=== PATIENT | female | born 1930 | race Caucasian/White ===

== ENCOUNTER 2016-05-12 12:35 | Inpatient (IN) | payer MEDICARE ==
[~2016-05-12] VITALS: Ht 176.5 cm; Wt 64.2 kg
[2016-05-12] MEDS ORDERED: 0.9% Sodium Chloride 1,000 ML IV ONE (12:39)
--- NOTE | 2016-05-12 12:39 | ED.REPORT ---
HPI-GI Bleed Date of Service May 12, 2016 ED Provider: Dr. Nathaniel Mcadams MD An 86 year female with a history of hypertension, stroke, atrial fibrillation on coumadin, dementia and Alzheimer's presents to the ED via EMS from Urgent Care complaining of a rectal bleed and hematochezia that began this morning. EMS reports the patient had raymond blood red stool this morning and she has been weak for the past few days. Heart rate was 52 in the field. Patient is unable to provide a history due to dementia. Nursing Notes Stated Complaint: GI BLEED Chief Complaint: Female Abdominal Pain Nursing Notes Reviewed: Yes Allergies: Coded Allergies: Penicillins (Verified Adverse Reaction, Intermediate, 05/12/16) Scheduled Cephalexin (Cephalexin) 500 Mg Capsule 500 MG PO QID Donepezil (Donepezil) 10 Mg Tablet 10 MG PO HS Furosemide (Lasix) 40 Mg Tablet 40 MG PO DAILY Metoprolol Tartrate (Metoprolol Tartrate) 25 Mg Tablet 25 MG PO BID Omeprazole (Omeprazole) 20 Mg Capsule.dr 20 MG PO DAILY Sertraline HCl (Sertraline) 100 Mg Tablet 100 MG PO DAILY Simvastatin (Simvastatin) 20 Mg Tablet 20 MG PO HS Scheduled PRN Hydrocodone-Acetaminophen 5-325 mg (Hydrocodone-Acetaminophen 5-325 mg) 1 Each Tablet 1 TABLET PO Q4H PRN PRN For Pain General Time Seen by Provider: 12:39 Chief Complaint Chief Complaint: Other (Rectal Bleed ) Hx Obtained From: EMS Unable to Obtain Hx: Mental status Arrived By: Ambulance Onset Occurred: 9 - 12 hours ago Symptom Duration: Since onset Progression Since Onset: Unchanged Associated with: Reports: Weakness Pertinent Negative: Pt denies other symptoms Recent Healthcare: No recent hospitalization, Recent doctor visit Past Medical History Past Medical History Alzheimer's Hemorrhoids Bleeding gastric ulcers Reports: Cancer, Hyperlipidemia, Hypertension, Stroke, Transient ischemic attack Reports: Atrial fibrillation, Dementia Smoking History Unknown if Ever Smoker Social History Other Social History: Good social support, Local resident Ambulatory Status Independent Review of Systems Unable to Obtain ROS Mental status Complete sys rev & neg: except as marked. Physical Exam Initial Vital Signs Initial VS: Reviewed Head / Eyes: Atraumatic, Normocephalic, PERRL ENT: Mucous membranes moist, Conjunctiva normal, No scleral icterus Neck: Supple, Non-tender, Full range of motion Skin: Warm, Dry, No cyanosis General/Constitutional: Awake, Alert, Cooperative At her baseline Respiratory / Chest: Atraumatic, Breath sounds NL, Breath sounds = bilat, No respiratory distress Cardiovascular: Heart rate NL, Regular rhythm, Heart sounds NL, No gallop, No murmurs, No rubs Heart Sounds / Murmur: Positive: Systolic murmur present.. (II/) Abdomen: Atraumatic, Soft, Non-tender, No guarding, No rebound, BS normoactive , No distention Well healed vertical surgical scar Rectal for Blood: Positive: Blood - occult heme +, Blood, grossly present Interpretation & Diagnostics Lab Results Interpretation Result Diagram: 05/17/16 0520 05/17/16 0520 Test 05/12/16 13:50 05/12/16 14:06 Urine Color Straw (YELLOW) Urine Appearance Clear (CLEAR,HAZY) Urine pH 7.5 (5.0-8.0) Urine Specific [place] 1.015 (1.003-1.035) Urine Protein Negativemg/dL (NEG,TRACE) Urine Glucose (UA) Negativemg/dL (NEGATIVE) Urine Ketones Negativemg/dL (NEGATIVE) Urine Occult Blood Trace (NEGATIVE) Urine Nitrite Negative (NEGATIVE) Urine Bilirubin Negative (NEGATIVE) Urine Urobilinogen Normalmg/dL (NORMAL) Urine Leukocyte Esterase Moderate (NEGATIVE) Urine RBC 0-2/hpf (0-2) Urine WBC 11-50/hpf (0-5) Urine Epithelial Cells Few/hpf (NONE-MOD) Urine Crystals None seen (NONE SEEN) Urine Bacteria Many/hpf (NONE-FEW) Urine Hyaline Casts None/lpf (NONE) Urine Granular Casts None seen (NONE SEEN) Urine Waxy Casts None seen (NONE SEEN) Urine Red Blood Cell Casts None seen (NONE SEEN) Urine White Blood Cell Casts None seen (NONE SEEN) Urine Mucus None seen (None Seen) Urine Trichomonas None seen (NONE SEEN) Urine Yeast None (NONE SEEN) Urinalysis Comment None Urine Culture Reflexed Indicated Hold Elder Top Tube Received (Received) ECG Interpretation ECG Interpretation: Atrial fibrillation Rate 67 Time: 01:08 Interpreted by: ED physician Re-Eval/Medical Decision Med Decision/Clinical Course I assumed care of this patient from Dr. Mcadams at approximately 1500. Vitals sign were stable. Rectal exam positive for a large amount of bright red blood. The patient had many external hemorrhoids though none were obviously bleeding. Labs: No leukocytosis hematocrit: 35.7 INR: 3.21 Chemistry is normal UA: consistent with UTI The patient remained hemodynamically stable. I suspect that her bleed was lower GI in nature and potentially related to internal hemorrhoids. That being said she is on Coumadin with history of colon cancer as well as history of bleeding gastric ulcers. At this time I cannot definitively attribute her GI bleed to hemorrhoids. She was discussed with GI and they recommended starting her on pantoprazole bolus and infusion admitting for further observation and management. They have requested she be started on bowel prep for endoscopy. Patient remained hemodynamically stable and is admitted to the hospitalist service for further management and consultation with GI. Given INR of 3 but hemodynamically stability with no significant ongoing bleeding we opted to withhold Coumadin though not reverse at this moment. Source of Hx: Old records, Family Counseled Regarding: Diagnosis, Lab results Discharge & Departure Shift Change Sign-Out Patient Care Transferred: Yes Discussed Complaint(s): Yes Laboratory Evaluation: Ordered, not yet done Response to Therapy: Unchanged Dr. Nash Impression: Primary Impression: GI bleed GI bleed type/associated pathology: unspecified gastrointestinal hemorrhage type Qualified Code: K92.2 - Gastrointestinal hemorrhage, unspecified Additional Impressions: Anemia Anemia type: unspecified type Qualified Code: D64.9 - Anemia, unspecified Anticoagulated on Coumadin History of colon cancer in adulthood History of gastric ulcer Discharge Condition All VS Reviewed: Yes Condition: Stable Care Transferred to: Dr. Tk Nash Care Transferred at: 15:00 Crit Care Except Billable Proc Time Spent: 105-134 minutes Services Performed: Patient management by me, Time spent at bedside, Reviewing test results, Reviewing imaging, Discussing patient care, Documentation in record, Time with fam/surrogate Critical Care Notes: Dr. Tk Nash Scribe Attestation Portions of this note were transcribed by Ann Cross. I, Dr. Mcadams personally performed the history, physical exam and medical decision-making; I reviewed and confirmed the accuracy of the information in the transcribed note. Signed by: Radha Thorpe, 05/12/16 1400. Nathaniel Mcadams MD May 12, 2016 12:38 ANN CROSS May 12, 2016 12:41 JEFRY SEGAL May 12, 2016 15:20 Tk Nash MD May 12, 2016 22:07 Urine Occult Blood Trace (NEGATIVE) Urine Nitrite Negative (NEGATIVE) Urine Bilirubin Negative (NEGATIVE) Urine Urobilinogen Normalmg/dL (NORMAL) Urine Leukocyte Esterase Moderate (NEGATIVE) Urine RBC 0-2/hpf (0-2) Urine WBC 11-50/hpf (0-5) Urine Epithelial Cells Few/hpf (NONE-MOD) Urine Crystals None seen (NONE SEEN) Urine Bacteria Many/hpf (NONE-FEW) Urine Hyaline Casts None/lpf (NONE) Urine Granular Casts None seen (NONE SEEN) Urine Waxy Casts None seen (NONE SEEN) Urine Red Blood Cell Casts None seen (NONE SEEN) Urine White Blood Cell Casts None seen (NONE SEEN) Urine Mucus None seen (None Seen) Urine Trichomonas None seen (NONE SEEN) Urine Yeast None (NONE SEEN) Urinalysis Comment None Urine Culture Reflexed Indicated Hold Elder Top Tube Received (Received) ECG Interpretation ECG Interpretation: Atrial fibrillation Rate 67 Time: 01:08 Interpreted by: ED physician Re-Eval/Medical Decision Med Decision/Clinical Course I assumed care of this patient from Dr. Mcadams at approximately 1500. Vitals sign were stable. Rectal exam positive for a large amount of bright red blood. The patient had many external hemorrhoids though none were obviously bleeding. Labs: No leukocytosis hematocrit: 35.7 INR: 3.21 Chemistry is normal UA: consistent with UTI The patient remained hemodynamically stable. I suspect that her bleed was lower GI in nature and potentially related to internal hemorrhoids. That being said she is on Coumadin with history of colon cancer as well as history of bleeding gastric ulcers. At this time I cannot definitively attribute her GI bleed to hemorrhoids. She was discussed with GI and they recommended starting her on pantoprazole bolus and infusion admitting for further observation and management. They have requested she be started on bowel prep for endoscopy. Patient remained hemodynamically stable and is admitted to the hospitalist service for further management and consultation with GI. Given INR of 3 but hemodynamically stability with no significant ongoing bleeding we opted to withhold Coumadin though not reverse at this moment. Source of Hx: Old records, Family Counseled Regarding: Diagnosis, Lab results Discharge & Departure Shift Change Sign-Out Patient Care Transferred: Yes Discussed Complaint(s): Yes Laboratory Evaluation: Ordered, not yet done Response to Therapy: Unchanged Dr. Nash Impression: Primary Impression: GI bleed GI bleed type/associated pathology: unspecified gastrointestinal hemorrhage type Qualified Code: K92.2 - Gastrointestinal hemorrhage, unspecified Additional Impressions: Anemia Anemia type: unspecified type Qualified Code: D64.9 - Anemia, unspecified Anticoagulated on Coumadin History of colon cancer in adulthood History of gastric ulcer Discharge Condition All VS Reviewed: Yes Condition: Stable Care Transferred to: Dr. Tk Nash Care Transferred at: 15:00 Crit Care Except Billable Proc Time Spent: 105-134 minutes Services Performed: Patient management by me, Time spent at bedside, Reviewing test results, Reviewing imaging, Discussing patient care, Documentation in record, Time with fam/surrogate Critical Care Notes: Dr. Tk Garcia Attestation Portions of this note were transcribed by Ann Cross. I, Dr. Mcadams personally performed the history, physical exam and medical decision-making; I reviewed and confirmed the accuracy of the information in the transcribed note. Signed by: Radha Thorpe, 05/12/16 Nathaniel Fuentes MD May 12, 2016 12:38 ANN CROSS May 12, 2016 12:41 JEFRY SEGAL May 12, 2016 15:20 Tk Nash MD May 12, 2016 22:07
[2016-05-12 12:44] VITALS: BP 144/33; PULSE 58; RESP 17; O2SAT 94
[2016-05-12 13:23] LABS: INR 3.21 ratio
[2016-05-12 13:33] LABS: BASOPHILS % (AUTO) 0.3 % (0-3); EOSINOPHILS % (AUTO) 1.6 % (0-5); MONOCYTES % (AUTO) 7.5 % (4-12); Mean Corpuscular Hemoglobin 33.6 pg (27.0-35.0); Mean Corpuscular Volume 106.3 fL (81-100); NEUTROPHILS % (AUTO) 70.8 % (40-74); Platelet Count 309 bil/L (150-400)
[2016-05-12 14:02] VITALS: BP 124/68; PULSE 61; RESP 13; O2SAT 98
[2016-05-12 14:35] LABS: APPEARANCE,URINE CLEAR (CLEAR,HAZY); COLOR,URINE STRAW (YELLOW); PH,URINE 7.5 (5.0-8.0)
[2016-05-12 14:36] LABS: OCCULT BLOOD,URINE TRACE (NEGATIVE); UROBILINOGEN,URINE NORMAL (NORMAL)
[2016-05-12 14:54] VITALS: BP 158/80; PULSE 64; RESP 20; O2SAT 98
[2016-05-12] MEDS ORDERED: Lactated Ringer's 1,000 ML IV SCH (15:24)
[2016-05-12] MEDS ORDERED: Ondansetron 2 mg/mL 2 mL Inj IVPUSH PRN (15:25)
[2016-05-12] MEDS ORDERED: Pantoprazole Inj 80 MG, Pharmacy To Mix 1 EA in 0.9% Sodium Chloride 80 ML IV ONE ×2 (15:25)
[2016-05-12] MEDS ORDERED: Alum-Mag Hydrox-Simeth 30 mL Suspension PO PRN (15:25)
[2016-05-12] MEDS ORDERED: Pantoprazole 4 mg/mL 10 mL Inj IVPUSH ONE ×2 (15:25→16:15)
[2016-05-12] MEDS ORDERED: PEG/Electrolytes 4,000 mL Solution PO ONE (15:35)
[2016-05-12] MEDS ORDERED: cefTRIAXone Inj 1,000 MG in IV Premix 1 EACH IV ONE (15:35)
--- NOTE | 2016-05-12 17:39 | PCM.HPMED ---
Subjective Date of Service May 12, 2016 Primary Provider: Admitting Physician: Primary Care Physician: Tiff Bhatia MD Attending Physician: Admit Status: From the Emergency Department Chief Complaint: rectal bleeding History of Present Illness: 86 year female with a history of hypertension, stroke, atrial fibrillation on anticoagulates, dementia and Alzheimer's presents to the ED via EMS from Urgent Care complaining of a rectal bleed and hematochezia that began this morning. EMS reports the patient had raymond blood red stool this morning and she has been weak for the past few days. Heart rate was 52 in the field. Patient is unable to provide a history due to dementia.. History obtained from family members. As per them, patient had one episode of bright red bleedign per rectum this morning. Denies any more episodes of bleeding. Denies chest pain, shortness of breath, head ache, abdominal pain, diarrhea, vomiting. On arrival to ED, pt was normotensive, saturating 94% on room air. Blood tests revealed Hct of 35.7 and electrolytes were unremarkable. Allergies Coded Allergies: Penicillins (Verified Adverse Reaction, Intermediate, 05/12/16) [facility] Alzheimer's dementia Hemorrhoids Bleeding gastric ulcers Cancer, Hyperlipidemia, Hypertension, Stroke, Transient ischemic attack Atrial fibrillation, D Social History Hx Alcohol Use: No Hx Substance Use: No Smoking Status: Unknown if Ever Smoker Exam Vital Signs Vital Sign - Last Date Time Temp Pulse Resp B/P Pulse Ox O2 Delivery O2 Flow Rate FiO2 05/12/16 14:54 64 20 158/80 98 Room Air 05/12/16 12:44 36.6 Exam General/Constitutional: Awake, Alert, Cooperative. At her baseline Head / Eyes: Atraumatic, Normocephalic, PERRL ENT: Mucous membranes moist, Conjunctiva normal, No scleral icterus Neck: Supple, Non-tender, Full range of motion Skin: Warm, Dry, No cyanosis Respiratory / Chest: Atraumatic, Breath sounds normal, not in respiratory distress, No rhonhi, crepitations, wheezing. Cardiovascular: Regular rate and rhythm, no murmur, no peripheral edema, systolic murmur at apex Abdomen: Atraumatic, Soft, Non-tender, No guarding, No rebound, BS normoactive , No distention Neuro: No acute focal neurological defects. Psy: Flat affect Lab and Diagnostics Result Diagram: 05/12/16 1305 05/12/16 1305 Assessment & Plan 86 year female with a history of hypertension, stroke, atrial fibrillation on anticoagulates, dementia and Alzheimer's presented with rectal bleeding. GI bleed - Upper vs lower - GI consulted. Possible colonoscopy tomorrow - Hct stable - NPO - Will start PPI drip Hypertension - Will resume home medications - She is on metoprolol 25 bid and lasix of 40 mg Alzheimer's dementia - Will resume aricept 10 mg Atrial fibrillation - on metoprolol - Warfarin on hold due to GI bleeding and supra therapeutic INR GI ppx: Pantoprazole drip DVT ppx: Coumadin on hole due to GI bleeding. Also INR is aupra therpeutic Status: to be admitted as inpatient due to complexity of medical conditions that will require more than two days of hospital stay. Pain Evaluation: Adequate Pain Control GI Prophylaxis: Proton Pump Inhibitor VTE Mechanical Devices: Intermittant Pneumatic CD Resuscitation Status: CPR: Attempt Resuscitation Bienvenido Flores MD May 12, 2016 16:24
--- NOTE | 2016-05-12 18:08 | NUR ---
Admit to [facility] Patient arrived to room on ER [facility], was transferred to hospital bed with slide board and 3 person assistance. Alert to self, recognized daughter who accompanied her from ER. Health History taken from daughter, patient not a reliable source of information. Hx of Alzheimer's, dementia. Patient was changed and placed into brief. No rectal bleeding noted when providing jeanine care. Hemorrhoids present, not bleeding. Protonix gtt running when arrived to floor. Family spoke with hospitalist and decision was made to wait on administering colonoscopy prep and to monitor patient overnight. [facility] called by admit nurse to obtain patient's current medication history.
[2016-05-12 18:15] VITALS: BP 126/49; PULSE 64; RESP 16; O2SAT 94
[2016-05-12] MEDS ORDERED: HYDR-4003 PO (18:32)
[2016-05-12] MEDS ORDERED: WARF2TAB7 PO (18:32)
[2016-05-12] MEDS ORDERED: WARF3TAB7 PO (18:32)
[2016-05-12] MEDS ORDERED: SIMV20TA4 PO (18:32)
[2016-05-12] MEDS ORDERED: FURO-128 PO (18:32)
[2016-05-12] MEDS ORDERED: DONE10TA42 PO (18:32)
[2016-05-12] MEDS ORDERED: METO25TA6 PO (18:32)
[2016-05-12] MEDS ORDERED: OMEP20CA11 PO (18:32)
[2016-05-12] MEDS ORDERED: SERT100T9 PO (18:32)
[2016-05-12] MEDS ORDERED: WARF2.5T82 PO (18:32)
--- NOTE | 2016-05-12 18:40 | NUR ---
MED REC Med rec completed from list provided by [facility]. cooked paged to be notified.
[2016-05-12] MEDS: 0.9% Sodium Chloride 1,000 ML IV SCH (18:47)
[2016-05-12 21:00] VITALS: BP 169/67; PULSE 62; RESP 20; O2SAT 94
--- NOTE | 2016-05-12 21:49 | NUR ---
Mentation Pt oriented to name only. She is pleasant and cooperative. Mookie alarm in place due to inability to orient to call light Pt is resting quietly. No sign of agitation Will cont to monitor
[2016-05-13] VITALS (8 sets, daily range): BP systolic 116–175; BP diastolic 59–80; PULSE 56–86; RESP 16–20; O2SAT 93–96
[2016-05-13] MEDS: 0.9% Sodium Chloride 1,000 ML IV SCH ×2 (05:45→21:35)
[2016-05-13 06:23] LABS: BASOPHILS % (AUTO) 0.2 % (0-3); EOSINOPHILS % (AUTO) 2.6 % (0-5); MONOCYTES % (AUTO) 8.8 % (4-12); Mean Corpuscular Hemoglobin 33.2 pg (27.0-35.0); Mean Corpuscular Volume 104.6 fL (81-100); NEUTROPHILS % (AUTO) 63.2 % (40-74); Platelet Count 233 bil/L (150-400)
[2016-05-13 06:46] LABS: INR 3.53 ratio
[2016-05-13] MEDS ORDERED: hydrALAZINE 20 mg/mL Inj IV PRN (08:50)
[2016-05-13] MEDS ORDERED: Phytonadione (Vitamin K) per Pharmacy XX ONE (08:52)
[2016-05-13] MEDS ORDERED: Phytonadione (Adult) 10 mg/1 mL Inj PO ONE (09:05)
[2016-05-13] MEDS: Pantoprazole Inj 80 MG in 0.9% Sodium Chloride 80 ML IV SCH ×2 (10:17→22:36)
--- NOTE | 2016-05-13 12:06 | PCM.PNMED ---
Subjective Date of Service May 13, 2016 Subjective Patient seen this morning in bed, confused. Did have one large bloody bowel movement, supratherapeutic INR will plan for vitamin K today and repeat CBCs. GI consult and from ER patient denies pain Exam Vital Signs Vital Sign - Last Date Time Temp Pulse Resp B/P Pulse Ox O2 Delivery O2 Flow Rate FiO2 05/13/16 08:57 36.3 58 16 167/73 95 Room Air Intake and Output 05/12/16 05/12/16 05/13/16 Cumulative From/Thru 15:00 23:00 07:00 05/12/16 12:44 - 05/13/16 06:50 Intake Total 0 ml 713 ml 713 ml Output Total 0 ml 0 ml Balance 0 ml 713 ml 713 ml Intake Oral 0 ml 0 ml 0 ml IV Total 713 ml 713 ml Output Urine Total 0 ml 0 ml # Voids 3 3 # Bowel Movements 0 0 0 Exam Gen.: Confused, no acute distress HEENT: Normocephalic/atraumatic, pupils equal round react to light and accommodation,EOMI, positive conjunctival pallor No mucosal ulcerations Neck: No JVD, lymphadenopathy, no thyromegaly Cardiovascular: No rubs clicks or gallops, regular rate, systolic murmur at apex Respiratory: Clear to auscultation bilaterally no wheezes rales or rhonchi, good historian effort GI: Soft, nontender to palpation no masses no hepatosplenomegaly noted no peritoneal signs or rebound tenderness. Extremities: No clubbing cyanosis or edema, warm, sensation intact Neurologic, muscle strength 5 out of 5 in upper and lower extremities bilaterally, creatinine nerves II-12 grossly intact Psych: Mood appropriate, flat affect, IVs and Medications Medications Reviewed: Medications were reviewed in detail Lab and Diagnostics Result Diagram: 05/13/16 0542 05/13/16 0542 Assessment & Plan 86 year female with a history of hypertension, stroke, atrial fibrillation on anticoagulants, dementia and Alzheimer's presented with rectal bleeding. GI bleed - Upper vs lower - GI consulted. Possible colonoscopy, which evaluation - Vitamin K 2.5 mg orally given, repeat H&H's, if continues to bleed/H&H drops will give FFP - Hct stable - NPO - Will start PPI drip Hypertension -Continue to resume home medications - She is on metoprolol 25 bid, will hold home regimen of lasix 40 mg Alzheimer's dementia - Will resume aricept 10 mg Atrial fibrillation - on metoprolol - Warfarin on hold due to GI bleeding and supra therapeutic INR GI ppx: Pantoprazole drip DVT ppx: Coumadin on hole due to GI bleeding. Also INR is aupra therpeutic Status: to be admitted as inpatient due to complexity of medical conditions that will require more than two days of hospital stay. Pain Evaluation: Adequate Pain Control GI Prophylaxis: Proton Pump Inhibitor VTE Mechanical Devices: Intermittant Pneumatic CD Resuscitation Status: CPR: Attempt Resuscitation Time spent 35 minutes spent with evaluation and management Attending Statement Disposition pending clinical course, likely 2 days or more Adam Gonzales DO May 13, 2016 12:06
[2016-05-13 12:10] LABS: BASOPHILS % (AUTO) 0.3 % (0-3); EOSINOPHILS % (AUTO) 1.1 % (0-5); MONOCYTES % (AUTO) 8.2 % (4-12); Mean Corpuscular Hemoglobin 33.3 pg (27.0-35.0); Mean Corpuscular Volume 103.7 fL (81-100); NEUTROPHILS % (AUTO) 69.7 % (40-74); Platelet Count 253 bil/L (150-400)
--- NOTE | 2016-05-13 13:04 | NUR ---
GI Patient was incontinent of large BM/rectal bleed early in shift. Dark red blood mixed with little bright red blood. Jeanine care provided. Applied barrier ointment to external hemorrhoids and jeanine area. MD aware. INR elevated. Oral vitamin K given. H/H is stable, checking Q6H. Protonix gtt running. Continue to monitor.
--- NOTE | 2016-05-13 13:06 | NUR ---
Social Work: Initial Assessment Data & Assessment: EMR Reviewed. See Initial Assessment. Assisted Living Assistant met with patient at bedside to complete initial assessment, SW role reviewed, and discussed discharge plan. Patient's daughters, Faiza Zee and Arianna, were present during assessment.Patient was alert but did not say anything. Patient's PCP is Dr. Tiff Blackburn. Patient's insurance is [employer] Medicare. Patient does not have VA benefits and does not have LTC insurance. Patient was a resident at [facility] [phone] prior to admission. Patient has prior HH but can not recall the name. Patient does not have any SNF history. Patient has a walker and transport chair. Patient's does not have any SW needs at the current time. Patient will transport home via POV when discharged. SW will continue to follow. Plan: Patient is likely to discharge back to [facility] with no needs. A bedside assessment will be needed prior to patient returning to [facility]. Patient clinical was faxed [phone] to [facility] for review. SW will continue to follow. Donya Warren LMSW, CHRISTA Addendum: 05/13/16 at 1323 by DONYA WARREN Amended: Links added.
--- NOTE | 2016-05-13 13:50 | PCM.CHPMED ---
Subjective Date of Service: May 13, 2016 Provider requesting consult: Bienvenido Flores MD Primary Physician: Admitting Physician: Bienvenido Flores MD Primary Care Physician: Tiff Bhatia MD Attending Physician: Bienvenido Flores MD Chief Complaint: Chief Complaint: GI bleed History of Present Illness: Patient is an 86 year female with a history of hypertension, stroke, atrial fibrillation on Warfarin, colon cancer, bleeding gastric ulcers, hemorrhoids, and Alzheimer's who presents with hematochezia that began this morning. Patient is unable to provide a history due to dementia. Her family reports that she had raymond blood red stool this morning and she has been increasingly weak for the past few days. She was noted to have a bowel movement with red blood and dark blood this morning after admission. She reports lightheadedness this morning but otherwise has no other complaints. She denies chest pain, shortness of breath, head ache, abdominal pain, diarrhea, vomiting. On admission, vitals were stable. Labs showed Hb 11.3, now down to 9.4. Hct 35.7 --> 29.6. LFTs normal. INR was 3.21 on admission, now 3.53. Her daughter reports her INR has been difficult to control, as she has been consistently losing weight. Daughter reports the pt has lost about 30 lbs in the last 7 months, but attributes it to mood and appetite. The pt's about 6-7 months ago and the patient has had dental issues and was in the process of oral surgery and denture placement over the summer. She has since been on a mechanical soft diet in her care facility ([facility]) and has been eating poorly. The patient has a history of colon cancer, s/p surgery (likely colectomy) and yearly colonoscopies. The daughter states she has not had a colonoscopy in about 10 years, however, as they were eventually discontinued due to the patient's age. No family history of Crohn's, UC, Celiac disease. She denies any NSAID use, with regular Tylenol use ([facility]). Review of Systems: Comprehensive review of systems conducted and was negative except for the pertinent positives listed above. PMH Past Medical History Alzheimer's dementia Hemorrhoids Bleeding gastric ulcers Cancer, Hyperlipidemia, Hypertension, Stroke, Transient ischemic attack Atrial fibrillation Colon cancer Surgical History Possible colectomy (history unclear) Unknown surgery related to gastric ulcers (history unclear) Allergies: Coded Allergies: Penicillins (Verified Adverse Reaction, Intermediate, 05/12/16) Family History Family History Father - Multiple strokes 2 brothers - Strokes Social History Hx Alcohol Use: NoHx Substance Use: No Smoking Status: Former Smoker (04/29 - 1 PPD for 50 years.) Exam Vital Signs Vital Sign - Last Date Time Temp Pulse Resp B/P Pulse Ox O2 Delivery O2 Flow Rate FiO2 05/13/16 08:57 36.3 58 16 167/73 95 Room Air Intake and Output 05/12/16 05/12/16 05/13/16 Cumulative From/Thru 15:00 23:00 07:00 05/12/16 12:44 - 05/13/16 06:50 Intake Total 0 ml 713 ml 713 ml Output Total 0 ml 0 ml Balance 0 ml 713 ml 713 ml Intake Oral 0 ml 0 ml 0 ml IV Total 713 ml 713 ml Output Urine Total 0 ml 0 ml # Voids 3 3 # Bowel Movements 0 0 0 Additional Information: General: Alert, Oriented to name only, Cooperative, No Acute Distress Head: Normocephalic, atraumatic. External ears normal. Eyes: PERRLA, EOMI. Anicteric sclerae. Mouth: Mouth Normal, Mucous Membranes Moist/Mylo Neck: Neck supple with full range of motion. Chest & Lungs: Clear to auscultation bilaterally with no crackles, wheezes, or rhonchi. Cardiovascular: Irregularly irregular, Normal S1, Normal S2, Systolic murmur present Abdomen: Mild diffuse tenderness, Non-distended, No masses, Normoactive bowel tones, Soft Musculoskeletal: Normal Range of Motion Extremities: No cyanosis/clubbing/edema bilaterally Neurological: Grossly Neurologically Intact, Normal Speech. Lab and Diagnostics Result Diagram: 05/13/16 0542 05/13/16 0542 Assessment & Plan Assessment Patient is an 86 year female with a history of hypertension, stroke, atrial fibrillation on Warfarin, colon cancer, bleeding gastric ulcers, hemorrhoids, and Alzheimer's who presents with hematochezia that began this morning Acute GI bleed. - Given her history of colon cancer, gastric ulcers, and hemorrhoids, she may be having an upper or lower GI bleed, although an upper GI bleed is more likely. Her stool was reported to have been bright red or dark red at times. She has no history of liver disease and LFTs were normal, so no concern for variceal bleed. Will proceed with upper endoscopy at this time; we will consider colonoscopy if her bleeding continues and no upper GI source is found. 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 - Will evaluate with upper endoscopy. - PPI drip - Consider abdominal CT if no evidence of pathology on upper/lower endoscopy. Macrocytic anemia - Hb 11.3 --> 9.4. MCV 106.3. No history of CKD or other vitamin deficiencies, but MCV is elevated, so consider checking B12/folate. She denies EtOH history. - Recommend discussion with family about whether the patient needs to be on chronic anticoagulation, given her bleeding and fall risk. May require palliative care consult. - Monitor H&H, transfuse as required - Consider checking B12/folate. Weight loss - Likely secondary to her recent dental surgeries, diet change, and of her . Some suspicion for recurrence of colon cancer, however. - Recommend nutritional supplements History of Colon Cancer - S/P possible colectomy. Recurrence may be source of bleed. Will investigate with colonoscopy. If she has a colon mass, given her risk factors, advanced age , and dementia, consider a discussion with palliative care. Problems: Pain Evaluation: Adequate Pain Control GI Prophylaxis: Proton Pump Inhibitor VTE Mechanical Devices: Intermittant Pneumatic CD Resuscitation Status: CPR: Attempt Resuscitation Attending Statement patient seen and examined with resident physician. I agree with his history and physical. I had a long discussion with family regarding upper endoscopic evaluation which they were agreeable to. However if patient is deemed not to be a candidate for continued anticoagulation use, then would recommend deferring colonoscopy if bleeding also resolves with correction of INR. If however bleeding persists despite correcting INR to normal then colonoscopy to further evaluate. Will defer decision of whether patient needs to continue anticoagulation. Continue to follow H/H closely. Chicho Crandall May 13, 2016 12:10 Robert Ireland MD May 13, 2016 22:29
[2016-05-13 14:04] LABS: INR 3.32 ratio
[2016-05-13] MEDS ORDERED: 0.9% Sodium Chloride 250 ML ONE (15:30)
--- NOTE | 2016-05-13 15:32 | NUR ---
Social Work Continued Discharge Planning: SW spoke to [facility] rep Genevieve who assessed patient at bedside. Patient accepted back upon discharge. Clinical information provided to Genevieve. Rep states that facility should be contacted prior to discharge to assess again at discharge for return. At this time, patient accepted back. SW to follow. PLAN: Return back to [facility], pending clinical course and further bedside eval from [facility]. Devan TORRE
[2016-05-13] MEDS ORDERED: PHYTONADIONE IV ONE (16:10)
[2016-05-13] MEDS ORDERED: DEXTROSE 5% IV ONE (16:10)
[2016-05-13 20:10] LABS: BASOPHILS % (AUTO) 0.3 % (0-3); EOSINOPHILS % (AUTO) 1.4 % (0-5); MONOCYTES % (AUTO) 8.8 % (4-12); Mean Corpuscular Hemoglobin 33.6 pg (27.0-35.0); Mean Corpuscular Volume 103.6 fL (81-100); NEUTROPHILS % (AUTO) 64.3 % (40-74); Platelet Count 255 bil/L (150-400)
--- NOTE | 2016-05-13 23:41 | NUR ---
TRANSFUSION TRANSFUSION BELINDA WELL, repositioned q 2 h. cooperative with care.
[2016-05-14] VITALS (8 sets, daily range): BP systolic 110–159; BP diastolic 55–73; PULSE 66–76; RESP 16–18; O2SAT 91–97
[2016-05-14 00:11] LABS: INR 1.74 ratio
--- NOTE | 2016-05-14 04:52 | NUR ---
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 No complaints re; pain or nausea. Capri Giron states small amt of blood noted in last stool of evening. No stool since. Continue IV Protonix. For EGD sometime tomorrow. Continue IVF's and IV Protonix. Continue current care plan.
--- NOTE | 2016-05-14 08:00 | PCM.HPANE ---
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 Surgeon Admitting Provider:Bienvenido Flores MD Attending Provider:Bienvenido Flores MD Primary Care Physician:Tiff Bhatia MD Other Provider: Reason for Visit Gi Bleed On Coumadin Ht/WT & BMI Height (Feet): 5 Height (Inches): 9.50 Weight (Kilograms): 63.100 Body Mass Index 20.27 Allergies Coded Allergies: Penicillins (Verified Adverse Reaction, Intermediate, 05/12/16) Past Anesthesia History Anesthesia History: Denies:: Anesthesia Reactions Diabetes History Hx Diabetes?: No MRSA MRSA: No Medications Reported Medications Hydrocodone-Acetaminophen 5-325 mg 1 Each Tablet1 Tablet PO Q4H PRN For Pain Ref 0 05/12/16 Warfarin Sodium 2.5 Mg Tablet2.5 Mg PO DAILY 30 Days Ref 0 Fri, Fri, , Fri, Sat-- 4.5mg total 05/12/16 Warfarin Sodium 2 Mg Tablet2 Mg PO DAILY 30 Days Ref 0 Fri, Fri, , Fri, Sat-- 4.5mg total 05/12/16 Warfarin Sodium 3 Mg Tablet3 Mg PO DAILY 30 Days Ref 0 Friday and -3 mg 05/12/16 Simvastatin 20 Mg [id number] Mg PO HS Ref 0 05/12/16 Sertraline HCl (Sertraline)100 Mg [id number] Mg PO DAILY 30 Days Ref 0 05/12/16 Omeprazole 20 Mg Capsule.dr20 Mg PO DAILY Ref 0 05/12/16 Metoprolol Tartrate 25 Mg [id number] Mg PO BID 30 Days Ref 0 05/12/16 Furosemide (Lasix)40 Mg [id number] Mg PO DAILY 30 Days Ref 0 05/12/16 Donepezil 10 Mg Ksrfor53 Mg PO HS Ref 0 05/12/16 History History of ENT Problems?: No Denture Type: Full- Upper Hx of Heart Problems?: Yes Cardiovascular History: Positive for:: Hypertension Denies:: Cardiac Surgery Chest Pain Congestive Heart Failure Edema Heart Murmur Irregular Heartbeat Pacemaker Thrombophlebitis Hx of Respiratory Problem?: No Respiratory History: Denies:: Asthma COPD Chest Surgery Dyspnea Emphysema Hemoptysis Pneumonia Tuberculosis Hx Neurologic Problems?: Yes Neurological History: Positive for:: Alzheimer's Disease CVA Dementia Denies:: Dizziness Headaches Parkinson's Disease Seizures Hx of GI Problems?: Yes Gastrointestinal History: Positive for:: Gastrointestinal Bleeding (hx of bleeding ulcer) Rectal Bleeding (current problem) Denies:: Diverticulitis Gastroesphageal Reflux Heartburn Hepatitis Hiatal Hernia Hx of Problems?: No Genitourinary History: Denies:: HX of Hemodialysis Kidney Stones Urinary Tract Infection HX of Peritoneal Dialysis: No Female Hx: Denies:: Currently Endometriosis Pelvic Inflammatory Problems with Breasts? Hx Musculoskeletal Problems?: No Musculoskeletal History: Positive for:: Back Injury (chronic lower back pain) Denies:: Joint Replacement Musculoskeletal Trauma Hx of Psycho/Social Problems?: Yes Psycho Social History: Positive for:: Anxiety Hx Depression Denies:: Bipolar Disorder Suicide Attempt Hx Surgeries?: Yes (ruptured disc) Hx Any Other Health Problems?: No Other History: Positive for:: Cancer (breast cancer, colon cancer) Denies:: Hospitalization Thyroid Disease History Blood Transfusions: Positive for:: Accept Blood Products? Blood Transfusions Denies:: Blood Transfuse Reaction Hx Diabetes: No Hx Alcohol Use: NoHx Substance Use: No Smoking Status: Former Smoker (1/2 - 1 PPD for 50 years.) Have You Smoked inLast 12 mo: No Stop/Bang Treated for Sleep Apnea?: No Do You Have a CPAP Machine?: No S-Snoring: Do You Snore Loudly: No T-Tired: feel tired, fatigued: No O-Obsered: Observed not breath: No P-Blood Pressure: treated: Yes B- Body Mass Index > 35 kg/m2: Yes A- Age over 50: Yes N- Neck Large Circumference: No G- Gender Male: No MICHELLE Total Score: 3 Risk Assessment Category Category 1A: Patient has history of documented sleep apnea, and HAS NOT received any narcotic, sedative or anesthesia administration during this stay. Category 1B: Patient has history of documented sleep apnea, and HAS received any narcotic , sedative or anesthesia administration during this stay Category 2: Patient has SUSPECTED Obstructive Sleep Apnea, and HAS received any narcotic , sedative or anesthesia administration during this stay. Category 3: Patient has SUSPECTED Obstructive Sleep Apnea and HAS NOT received narcotic, sedative or anesthesia administration during this stay. Category 4: Outpatient in Procedural Areas with known sleep apnea or who screen positive for High Risk via the STOP/BANG questionnaire. Exam Exam Vital Signs Vital Signs Date Time Temp Pulse Resp B/P Pulse Ox O2 Delivery O2 Flow Rate FiO2 05/14/16 05:06 36.5 72 16 136/63 94 Room Air Meds/Labs/Diagnostics Admission Meds Current Medications Furosemide (Lasix) 40 mg DAILY PO Last administered on 05/13/16 07:49; Start 05/13/16 at 08:30 Sertraline HCl 100 mg 100 mg DAILY PO Last administered on 05/13/16 07:48; Start 05/13/16 at 08:30 Pantoprazole/ Sodium Chloride (Protonix Inj/ Normal Saline) 100 ml @ 10 mls/hr Q10H IV Last administered on 05/13/16 22:36; Start 05/13/16 at 08:45 Pharmacy Consult (Phytonadione (Vitamin K) per Pharmacy) 1 ea OT ONCE XX Last administered on 05/13/16 10:28; Start 05/13/16 at 08:52; Stop 05/13/16 at 08:53 ; Status DC Phytonadione 2.5 mg 2.5 mg OT ONCE PO Last administered on 05/13/16 10:28; Start 05/13/16 at 09:05; Stop 05/13/16 at 09:06; Status DC Sodium Chloride 250 ml @ ud STK-MED ONCE .ROUTE Last administered on 05/13/16 16:25; Start 05/13/16 at 15:30; Stop 05/13/16 at 15:31; Status DC Phytonadione/ Dextrose/Water (Vitamin K (Adult)/D5W) 50.25 ml @ 67 mls/hr OT ONCE IV Last administered on 05/13/16 21:34; Start 05/13/16 at 16:10; Stop at 16:54; Status DC Labs Test 05/12/16 13:05 05/12/16 13:50 05/12/16 14:06 05/13/16 05:42 Total Bilirubin 0.6mg/dL (0.0-1.2) Aspartate Amino Transf (AST/SGOT) 20U/L (0-50) Alanine Aminotransferase (ALT/SGPT) 8U/L (0-32) Alkaline Phosphatase 93U/L (25-165) Total Protein 7.2g/dL (6.4-8.4) Albumin 3.4g/dL (3.4-5.0) Urine Color Straw (YELLOW) Urine Appearance Clear (CLEAR,HAZY) Urine pH 7.5 (5.0-8.0) Urine Specific [place] 1.015 (1.003-1.035) Urine Protein Negativemg/dL (NEG,TRACE) Urine Glucose (UA) Negativemg/dL (NEGATIVE) Urine Ketones Negativemg/dL (NEGATIVE) Urine Occult Blood Trace (NEGATIVE) Urine Nitrite Negative (NEGATIVE) Urine Bilirubin Negative (NEGATIVE) Urine Urobilinogen Normalmg/dL (NORMAL) Urine Leukocyte Esterase Moderate (NEGATIVE) Urine RBC 0-2/hpf (0-2) Urine WBC 11-50/hpf (0-5) Urine Epithelial Cells Few/hpf (NONE-MOD) Urine Crystals None seen (NONE SEEN) Urine Bacteria Many/hpf (NONE-FEW) Urine Hyaline Casts None/lpf (NONE) Urine Granular Casts None seen (NONE SEEN) Urine Waxy Casts None seen (NONE SEEN) Urine Red Blood Cell Casts None seen (NONE SEEN) Urine White Blood Cell Casts None seen (NONE SEEN) Urine Mucus None seen (None Seen) Urine Trichomonas None seen (NONE SEEN) Urine Yeast None (NONE SEEN) Urinalysis Comment None Urine Culture Reflexed Indicated Hold Elder Top Tube Received (Received) Sodium Level 142mEq/L (134-144) Potassium Level 4.0mEq/L (3.5-5.2) Chloride Level 105mEq/L (97-108) Carbon Dioxide Level 30mmol/L (18-29) Blood Urea Nitrogen 11mg/dL (8-27) Creatinine 0.59mg/dL (0.57-1.00) Estimat Glomerular Filtration Rate 138mL/min (>59) Glucose Level 82mg/dL (60-99) Calcium Level 8.2mg/dL (8.5-10.1) Test 05/13/16 19:50 05/13/16 23:40 White Blood Count 6.6th/mm3 (3.8-10.1) Red Blood Count 2.77mil/mm3 (3.90-5.20) Hemoglobin 9.3g/dL (12.0-15.6) Hematocrit 28.7% (35.0-46.0) Mean Corpuscular Volume 103.6fL (81-100) Mean Corpuscular Hemoglobin 33.6pg (27.0-35.0) Mean Corpuscular Hemoglobin Concent 32.4% (32.0-37.0) Red Cell Distribution Width 16.7% (12.3-15.4) Platelet Count 255bil/L (150-400) Neutrophils (%) (Auto) 64.3% (40-74) Lymphocytes (%) (Auto) 24.7% (14-46) Monocytes (%) (Auto) 8.8% (4-12) Eosinophils (%) (Auto) 1.4% (0-5) Basophils (%) (Auto) 0.3% (0-3) Prothrombin Time 18.8sec (8.1-12.5) Prothromb Time International Ratio 1.74ratio Plan Impression Patient chart reviewed, patient interviewed and anesthestic plan with risks, benefits, and alternatives discussed, and informed consent obtained. Other care assumed by Dve Wagner MD May 14, 2016 07:59
--- NOTE | 2016-05-14 09:30 | NUR ---
Wound Care Wound evaluation received, pt seen at bedside with family members. Skin was assessed, family concerned about right elbow. Removal of dressing(bandaid) reveals full thickness skin tear (POA) without residual skin flap. No signs of infection. Drainage is sanguineous and minimal. Periwound edges are adherent. Wound base is red dermis. Redressed with and adhesive foam after wound cleaned with saline and gauze. No other skin issues are identified at this time. No wound follow up necessary. Nursing to change dressing PRN.
[2016-05-14 10:04] LABS: BASOPHILS % (AUTO) 0.2 % (0-3); EOSINOPHILS % (AUTO) 1.5 % (0-5); Mean Corpuscular Volume 104.4 fL (81-100); NEUTROPHILS % (AUTO) 66.3 % (40-74); Platelet Count 251 bil/L (150-400)
[2016-05-14 10:17] LABS: INR 1.37 ratio
[2016-05-14] MEDS ORDERED: cefTRIAXone Inj 2,000 MG in IV Premix 1 EACH IV SCH (10:22)
[2016-05-14] MEDS: Pantoprazole Inj 80 MG in 0.9% Sodium Chloride 80 ML IV SCH ×2 (10:39→14:45)
[2016-05-14] MEDS ORDERED: Propofol 10,000 mCg/mL 20 mL Inj ONE (13:45)
[2016-05-14] MEDS ORDERED: Lactated Ringer's 1,000 ML IV ONE (14:28)
[2016-05-14] MEDS ORDERED: Lactated Ringer's 1,000 ML IV SCH (14:49)
--- NOTE | 2016-05-14 14:49 | PCM.ANEP1 ---
Post Anesthesia Phase 1 PACU Phase 1 Assessment Date of Service: May 13, 2016 Vital Signs Vital Signs Date Time Temp Pulse Resp B/P Pulse Ox O2 Delivery O2 Flow Rate FiO2 05/14/16 14:05 36.5 67 18 133/55 91 Room Air 05/14/16 12:56 37.2 66 16 159/73 95 Room Air Anesthetic Administered: MAC Level of Alertness: Awake, talking VILLASEÑOR's with Equal Strength: Yes Pain: No Dev Valentine MD May 14, 2016 14:49
--- NOTE | 2016-05-14 14:49 | PCM.ANEP2 ---
Post Anesthesia Evaluation ASA/CMS Post Anesthesia VS in Patient's Normal Range?: Yes Resp Stable; Airway Patent?: Yes CV Function & Hydration Stable: Yes Mental Status Recovered?: Yes Pain control Satisfactory?: Yes N/V Control Satisfactory?: Yes Dev Valentine MD May 14, 2016 14:49
[2016-05-14] MEDS ORDERED: MetoCLOpramide 5 mg/mL 2 mL Inj IVPUSH PRN (14:50)
[2016-05-14] MEDS ORDERED: Ondansetron 2 mg/mL 2 mL Inj IVPUSH PRN (14:50)
--- NOTE | 2016-05-14 15:05 | ENDO ---
[address] [address] ENDOSCOPY PROCEDURE PATIENT: LAURYN HILL : 1930 MR#: [id number] ADMIT: 05/12/2016 JOB ID: [id number] DATE: 05/14/2016 TYPE OF OPERATION: Esophagogastroduodenoscopy. PREOPERATIVE DIAGNOSIS(ES): Gastrointestinal bleed. POSTOPERATIVE DIAGNOSIS(ES): Very wide patent Schatzki ring distal esophagus. Otherwise normal upper endoscopy. No evidence of gastrointestinal bleeding on the upper endoscope. ANESTHESIA: Monitored anesthesia care. COMPLICATIONS: None. BLOOD LOSS: Minimal. DESCRIPTION OF PROCEDURE: After risks and benefits were explained to the patient, informed consent was obtained. After anesthesia administered, an upper endoscope was inserted in the mouth intubating to the esophagus, stomach, second portion of duodenum. Mucosa carefully examined. After procedure was done, the scope withdrawn and procedure terminated. FINDINGS: Upon inspection of the esophagus, there was a very wide open, patent Schatzki ring. Z-line located 40 cm from incisors. There were no ulcers or masses that were seen. Upon entering the stomach, there were no masses, ulcers, or evidence of bleeding that was seen. Retroflexion was also normal. Duodenal bulb, first and second portion were also normal and carefully visualized. IMPRESSIONS: Widely open, patent Schatzki ring. Otherwise normal upper endoscope. RECOMMENDATIONS: 1. Antireflux medication such as proton pump inhibitor. 2. Recommendations per inpatient GI team. 3. Okay to start clear liquid diet.
--- NOTE | 2016-05-14 16:18 | NUR ---
NUTRITION ASSESSMENT: ASSESS: 86 YO female with rectal bleed. Pt is s/p EGD today. PMHx: HTN, Stroke, afib on coumadin, alzheimer's dementia, hemorrhoids, bleeding gastric ulcers, colon cancer, TIA. LABS: Reviewed. Alb 3.4 MEDS: Reviewed. GI: BM x 1 (05/14) SKIN: Area of concern on R elbow, wound eval pending. CURRENT WT: 63.1 kg. DIET: NPO for procedures x 2 day. EST. NEEDS: [id number] kcals (25-30 kcals/kg BW), 75-95 g protein (1.2-1.5 g/kg BW) NUTRITION DIAGNOSIS: 1.) Inadequate oral intake related to altered GI function as evidenced by GI bleed and NPO status x 2 days. NUTRITION INTERVENTION: 1.) Will continue to await timely advancement of diet, hopefully within the next 24-48 hours. 2.) Consider adding supplements once diet is advanced if po intake meets < 50% of pt est. needs. MONITOR / EVAL: Diet advancement / tolerance, labs, nutritional status. Follow per moderate nutritional risk guidelines.
[2016-05-14] MEDS: 0.9% Sodium Chloride 1,000 ML IV SCH (18:44)
--- NOTE | 2016-05-14 19:49 | NUR ---
EGD Patient gone to Endo for most of afternoon. Pt received back to room 1025 s/p EGD no active bleeding noted . Pt alert, only oriented to self but is complaining of neck pain which tylenol was given for. Pt tolerating some clear liquids.
--- NOTE | 2016-05-15 04:36 | NUR ---
Activity Pt tolerating clear liquid diet without complaint of nausea. Incontinent of urine. No stool. Calmoseptine applied as moisture barrier. Heels lifted on pillows, wearing SCDs. Pt turned with brief changes and has been able to sleep throughout the night.
[2016-05-15] MEDS: 0.9% Sodium Chloride 1,000 ML IV SCH ×2 (04:58→12:57)
[2016-05-15 05:15] VITALS: BP 131/51; PULSE 59; RESP 16; O2SAT 92
[2016-05-15] MEDS ORDERED: cefTRIAXone Inj 2,000 MG in Dextrose 5% Minibag Plus 50 ML IV SCH (08:30)
[2016-05-15 09:47] LABS: Mean Corpuscular Volume 103.6 fL (81-100)
--- NOTE | 2016-05-15 13:55 | NUR ---
Diet Patient's diet changed to soft diet which she ate 75 % of her lunch. Pt given Tylenol for neck pain . Patient has history of back and neck pain . Pt needs assistance when eating as had cva with left sided residual weakness to left arm. No bleeding or bowel movements today thus far.
--- NOTE | 2016-05-15 14:07 | PCM.PNMED ---
Subjective Date of Service May 15, 2016 Subjective Patient had no acute events overnight, no major complaints this morning except chronic neck and back pain. She has been tolerating a clear liquid diet without complaint of nausea. Denies vomiting, diarrhea, fevers, chills, bloody stool. Exam Vital Signs Vital Sign - Last Date Time Temp Pulse Resp B/P Pulse Ox O2 Delivery O2 Flow Rate FiO2 05/15/16 05:15 36.7 59 16 131/51 92 Room Air 05/14/16 15:10 1 Intake and Output 05/14/16 05/14/16 05/15/16 Cumulative From/Thru 15:00 23:00 07:00 05/12/16 12:44 - 05/15/16 05:00 Intake Total 150 ml 200 ml 758 ml 4693 ml Output Total 649 ml Balance 150 ml 200 ml 758 ml 4044 ml Intake Oral 200 ml 986 ml IV Total 150 ml 758 ml 3490 ml FFP 217 ml Output Urine Total 649 ml # Voids 2 11 # Bowel Movements 3 Exam General: Alert, Oriented to name only, Cooperative, No Acute Distress Head: Normocephalic, atraumatic. External ears normal. Eyes: PERRLA, EOMI. Anicteric sclerae. Mouth: Mouth Normal, Mucous Membranes Moist/[place] Neck: Neck supple with full range of motion. Chest & Lungs: Clear to auscultation bilaterally with no crackles, wheezes, or rhonchi. Cardiovascular: Irregularly irregular, Normal S1, Normal S2, Systolic murmur present Abdomen: Mild diffuse tenderness, Non-distended, No masses, Normoactive bowel tones, Soft Musculoskeletal: Normal Range of Motion Extremities: No cyanosis/clubbing/edema bilaterally Neurological: Grossly Neurologically Intact, Normal Speech, Confused. Lab and Diagnostics Result Diagram: 05/15/16 0930 05/13/16 0542 Assessment & Plan Patient is an 86 year female with a history of hypertension, stroke, atrial fibrillation on Warfarin, colon cancer, bleeding gastric ulcers, hemorrhoids, and Alzheimer's who presents with hematochezia that began this morning Acute GI bleed, stable. - Given her history of colon cancer, gastric ulcers, and hemorrhoids, she may be having an upper or lower GI bleed, although an upper GI bleed is more likely. Her stool was reported to have been bright red or dark red at times. She has no history of liver disease and LFTs were normal, so no concern for variceal bleed. Upper endoscopy was negative other than a patent Schatzki ring. She does not appear to have any blood in her stool at this time and is unlikely to be compliant with bowel prep, and would poorly tolerate a colonoscopy. Her H& H has stabilized, so there is no urgent need for a colonoscopy at this time. Discussed the need for continuing anticoagulants in this patient, and risks and benefits of preventing stroke vs her falling and bleeding risks. Family appears to be inclined to stop Warfarin, but will be discussing amongst themselves. Recommend further discussion with primary team later today or tomorrow. - Protonix 40 mg daily - Continue to monitor, appears stable for now. - Advance diet as tolerated Consider left atrial appendage occlusion device (Watchman Device), which can be placed via catheter and reduces incidence of stroke in afib without requiring anticoagulation. Macrocytic anemia, stable. - Hb 11.3 --> 9.4. MCV 106.3. No history of CKD or other vitamin deficiencies, but MCV is elevated, so consider checking B12/folate. She denies EtOH history. - Recommend further discussion with family about whether the patient needs to be on chronic anticoagulation, given her bleeding and fall risk. May require palliative care consult. - Monitor H&H daily transfuse as required - Consider checking B12/folate. Weight loss - Likely secondary to her recent dental surgeries, diet change, and of her . Some suspicion for recurrence of colon cancer, however. - Recommend nutritional supplements History of Colon Cancer - S/P possible colectomy. Recurrence may be source of bleed. Discussed with family, who do not wish for a colonoscopy at this time. May revisit subject if she continues to bleed. GI Prophylaxis: Proton Pump Inhibitor VTE Mechanical Devices: Intermittant Pneumatic CD Resuscitation Status: CPR: Attempt Resuscitation Attending Statement Patient was seen and examined yesterday with Dr Crandall. The note was inadvertently not sent to me for signature until this morning. Agree with assessment and plan. Dr Overton's EGD report was reviewed. The patient had a further episode of blood per rectum x 1 but h/h were actually stable to increased. Overall, did not appear to have any evidence of ongoing active bleeding. Encouraged team to consider cardiology opinion for Watchman Device that might allow patient to more safely d/c alf anticoagulation. Chicho Crandall May 15, 2016 14:07 Nathaniel Christie MD May 16, 2016 15:38
--- NOTE | 2016-05-15 14:28 | PCM.PNMED ---
Subjective Date of Service May 15, 2016 Subjective Patient had her upper endoscopy today which did reveal only a wide open and patent Schatzki's ring. No evidence of any erosions or ulcerations. She currently has been moved up to a full liquid diet today. 2 discussed with family results and they do have a question regarding possible physical therapy as she is been fairly debilitated over the past week. Exam Vital Signs Vital Sign - Last Date Time Temp Pulse Resp B/P Pulse Ox O2 Delivery O2 Flow Rate FiO2 05/15/16 05:15 36.7 59 16 131/51 92 Room Air 05/14/16 15:10 1 Intake and Output 05/14/16 05/14/16 05/15/16 Cumulative From/Thru 15:00 23:00 07:00 05/12/16 12:44 - 05/15/16 05:00 Intake Total 150 ml 200 ml 758 ml 4693 ml Output Total 649 ml Balance 150 ml 200 ml 758 ml 4044 ml Intake Oral 200 ml 986 ml IV Total 150 ml 758 ml 3490 ml FFP 217 ml Output Urine Total 649 ml # Voids 2 11 # Bowel Movements 3 Exam Constitutional: Elderly woman in no acute distress Head: Normocephalic atraumatic Chest: Clear to auscultation Cor: Regular rate and rhythm S1-S2 Abdomen: Soft nontender bowel sounds present Extremities: No pedal edema Lab and Diagnostics Laboratory Tests 72 Hours Test 05/13/16 05:42 05/13/16 12:00 05/13/16 13:35 05/13/16 19:50 White Blood Count 5.5th/mm3 (3.8-10.1) 6.3th/mm3 (3.8-10.1) 6.6th/mm3 (3.8-10.1) Red Blood Count 2.83mil/mm3 (3.90-5.20) 2.97mil/mm3 (3.90-5.20) 2.77mil/mm3 (3.90-5.20) Hemoglobin 9.4g/dL (12.0-15.6) 9.9g/dL (12.0-15.6) 9.3g/dL (12.0-15.6) Hematocrit 29.6% (35.0-46.0) 30.8% (35.0-46.0) 28.7% (35.0-46.0) Mean Corpuscular Volume 104.6fL (81-100) 103.7fL (81-100) 103.6fL (81-100) Mean Corpuscular Hemoglobin 33.2pg (27.0-35.0) 33.3pg (27.0-35.0) 33.6pg (27.0-35.0) Mean Corpuscular Hemoglobin Concent 31.8% (32.0-37.0) 32.1% (32.0-37.0) 32.4% (32.0-37.0) Red Cell Distribution Width 16.7% (12.3-15.4) 16.7% (12.3-15.4) 16.7% (12.3-15.4) Platelet Count 233bil/L (150-400) 253bil/L (150-400) 255bil/L (150-400) Neutrophils (%) (Auto) 63.2% (40-74) 69.7% (40-74) 64.3% (40-74) Lymphocytes (%) (Auto) 25.0% (14-46) 20.4% (14-46) 24.7% (14-46) Monocytes (%) (Auto) 8.8% (4-12) 8.2% (4-12) 8.8% (4-12) Eosinophils (%) (Auto) 2.6% (0-5) 1.1% (0-5) 1.4% (0-5) Basophils (%) (Auto) 0.2% (0-3) 0.3% (0-3) 0.3% (0-3) Prothrombin Time 38.7sec (8.1-12.5) 36.4sec (8.1-12.5) Prothromb Time International Ratio 3.53ratio 3.32ratio Sodium Level 142mEq/L (134-144) Potassium Level 4.0mEq/L (3.5-5.2) Chloride Level 105mEq/L (97-108) Carbon Dioxide Level 30mmol/L (18-29) Blood Urea Nitrogen 11mg/dL (8-27) Creatinine 0.59mg/dL (0.57-1.00) Estimat Glomerular Filtration Rate 138mL/min (>59) Glucose Level 82mg/dL (60-99) Calcium Level 8.2mg/dL (8.5-10.1) Test 05/13/16 23:40 05/14/16 09:45 05/15/16 09:30 Prothrombin Time 18.8sec (8.1-12.5) 14.7sec (8.1-12.5) Prothromb Time International Ratio 1.74ratio 1.37ratio White Blood Count 5.3th/mm3 (3.8-10.1) 5.5th/mm3 (3.8-10.1) Red Blood Count 2.70mil/mm3 (3.90-5.20) 2.79mil/mm3 (3.90-5.20) Hemoglobin 8.9g/dL (12.0-15.6) 9.2g/dL (12.0-15.6) Hematocrit 28.2% (35.0-46.0) 28.9% (35.0-46.0) Mean Corpuscular Volume 104.4fL (81-100) 103.6fL (81-100) Mean Corpuscular Hemoglobin 33.0pg (27.0-35.0) 33.0pg (27.0-35.0) Mean Corpuscular Hemoglobin Concent 31.6% (32.0-37.0) 31.8% (32.0-37.0) Red Cell Distribution Width 16.7% (12.3-15.4) 16.4% (12.3-15.4) Platelet Count 251bil/L (150-400) 250bil/L (150-400) Neutrophils (%) (Auto) 66.3% (40-74) Lymphocytes (%) (Auto) 21.6% (14-46) Monocytes (%) (Auto) 10.0% (4-12) Eosinophils (%) (Auto) 1.5% (0-5) Basophils (%) (Auto) 0.2% (0-3) Result Diagram: 05/15/16 0930 05/13/16 0542 Assessment & Plan Patient is an 86 year female with a history of hypertension, stroke, atrial fibrillation on Warfarin, colon cancer, bleeding gastric ulcers, hemorrhoids, and Alzheimer's who presents with hematochezia that began this morning Acute GI bleed, stable. - Given her history of colon cancer, gastric ulcers, and hemorrhoids, she may be having an upper or lower GI bleed, although an upper GI bleed is more likely. Her stool was reported to have been bright red or dark red at times. She has no history of liver disease and LFTs were normal, so no concern for variceal bleed. Upper endoscopy was negative other than a patent Schatzki ring. She does not appear to have any blood in her stool at this time and is unlikely to be compliant with bowel prep, and would poorly tolerate a colonoscopy. Her H& H has stabilized, so there is no urgent need for a colonoscopy at this time. Discussed the need for continuing anticoagulants in this patient, and risks and benefits of preventing stroke vs her falling and bleeding risks. Family appears to be inclined to stop Warfarin, but will be discussing amongst themselves. Recommend further discussion with primary team later today or tomorrow. - Protonix 40 mg daily - Continue to monitor, appears stable for now. - Advance diet as tolerated -Did discuss with family that it may be prudent to keep her off of warfarin given risk of it and potentially in 2-4 weeks starting ASA 81 mg by mouth daily for cardiovascular protection in light of her atrial fibrillation Macrocytic anemia, stable. - Hb 11.3 --> 9.4. MCV 106.3. No history of CKD or other vitamin deficiencies, but MCV is elevated, so consider checking B12/folate. She denies EtOH history. - Recommend further discussion with family about whether the patient needs to be on chronic anticoagulation, given her bleeding and fall risk. May require palliative care consult. - Monitor H&H daily transfuse as required - Consider checking B12/folate. Weight loss - Likely secondary to her recent dental surgeries, diet change, and of her . Some suspicion for recurrence of colon cancer, however. - Recommend nutritional supplements History of Colon Cancer - S/P possible colectomy. Recurrence may be source of bleed. Will investigate with colonoscopy. If she has a colon mass, given her risk factors, advanced age , and dementia, consider a discussion with palliative care. GI Prophylaxis: Proton Pump Inhibitor VTE Mechanical Devices: Intermittant Pneumatic CD Resuscitation Status: CPR: Attempt Resuscitation Time spent 30 minutes Kubisty,Josefina A MD May 15, 2016 14:28
[2016-05-15 16:00] VITALS: BP 127/77; PULSE 66; O2SAT 93
--- NOTE | 2016-05-15 16:48 | NUR ---
Occult bleeding Patient incontinent of lag soft dk brown/reddish stool. Guaiac positive stool. Patient denies abdomen discomfort , no n/v. Repeat H/H done now 9.4/29.2 which is slightly better this afternoon. Vitals stable see flow sheet. Dr made aware and will address this matter.
[2016-05-15 16:58] LABS: INR 1.25 ratio
[2016-05-15] MEDS: HYDROcodone-APAP 5-325 mg Tablet PO PRN (18:06)
[2016-05-15 21:00] VITALS: BP 101/63; PULSE 67; RESP 16; O2SAT 92
[2016-05-16] MEDS: HYDROcodone-APAP 5-325 mg Tablet PO PRN ×2 (01:26→16:08)
--- NOTE | 2016-05-16 01:38 | NUR ---
Bowel function Abd. soft with BT.No stool thus far/S&S of bleeding.Turns well with assist yet c/o back pain and med. with 1 vicoden at this time.VSS.Sleeping intermittently.Will cont. to monitor.
[2016-05-16] MEDS: 0.9% Sodium Chloride 1,000 ML IV SCH ×2 (02:17→10:43)
[2016-05-16 05:20] VITALS: BP 132/52; PULSE 59; RESP 16; O2SAT 92
--- NOTE | 2016-05-16 08:34 | PCM.PNMED ---
Subjective Date of Service May 16, 2016 Subjective Patient resting in bed this morning without any complaints. Review of nurses notes show no abnormal stool overnight. She did have late afternoon a larger dark brown, reddish stool which was guaiac positive. She had no abdominal pain with that. Exam Vital Signs Vital Sign - Last Date Time Temp Pulse Resp B/P Pulse Ox O2 Delivery O2 Flow Rate FiO2 05/16/16 05:20 36.7 59 16 132/52 92 Room Air 05/14/16 15:10 1 Intake and Output 05/15/16 05/15/16 05/16/16 Cumulative From/Thru 15:00 23:00 07:00 05/12/16 12:44 - 05/15/16 19:00 Intake Total 230 ml 498 ml 5421 ml Output Total 794 ml 1443 ml Balance -564 ml 498 ml 3978 ml Intake Oral 230 ml 498 ml 1714 ml IV Total 3490 ml FFP 217 ml Output Urine Total 794 ml 1443 ml # Voids 2 3 16 # Bowel Movements 3 Exam Constitutional: Elderly woman in no acute distress Chest: Clear to auscultation Cor: Regular rate and rhythm S1-S2 Abdomen: Soft nontender bowel sounds present Extremities: No pedal edema Lab and Diagnostics Laboratory Tests 72 Hours Test 05/13/16 12:00 05/13/16 13:35 05/13/16 19:50 05/13/16 23:40 White Blood Count 6.3th/mm3 (3.8-10.1) 6.6th/mm3 (3.8-10.1) Red Blood Count 2.97mil/mm3 (3.90-5.20) 2.77mil/mm3 (3.90-5.20) Hemoglobin 9.9g/dL (12.0-15.6) 9.3g/dL (12.0-15.6) Hematocrit 30.8% (35.0-46.0) 28.7% (35.0-46.0) Mean Corpuscular Volume 103.7fL (81-100) 103.6fL (81-100) Mean Corpuscular Hemoglobin 33.3pg (27.0-35.0) 33.6pg (27.0-35.0) Mean Corpuscular Hemoglobin Concent 32.1% (32.0-37.0) 32.4% (32.0-37.0) Red Cell Distribution Width 16.7% (12.3-15.4) 16.7% (12.3-15.4) Platelet Count 253bil/L (150-400) 255bil/L (150-400) Neutrophils (%) (Auto) 69.7% (40-74) 64.3% (40-74) Lymphocytes (%) (Auto) 20.4% (14-46) 24.7% (14-46) Monocytes (%) (Auto) 8.2% (4-12) 8.8% (4-12) Eosinophils (%) (Auto) 1.1% (0-5) 1.4% (0-5) Basophils (%) (Auto) 0.3% (0-3) 0.3% (0-3) Prothrombin Time 36.4sec (8.1-12.5) 18.8sec (8.1-12.5) Prothromb Time International Ratio 3.32ratio 1.74ratio Test 05/14/16 09:45 05/15/16 09:30 05/15/16 16:25 05/15/16 22:24 White Blood Count 5.3th/mm3 (3.8-10.1) 5.5th/mm3 (3.8-10.1) Red Blood Count 2.70mil/mm3 (3.90-5.20) 2.79mil/mm3 (3.90-5.20) Hemoglobin 8.9g/dL (12.0-15.6) 9.2g/dL (12.0-15.6) 9.4g/dL (12.0-15.6) 9.3g/dL (12.0-15.6) Hematocrit 28.2% (35.0-46.0) 28.9% (35.0-46.0) 29.2% (35.0-46.0) 28.1% (35.0-46.0) Mean Corpuscular Volume 104.4fL (81-100) 103.6fL (81-100) Mean Corpuscular Hemoglobin 33.0pg (27.0-35.0) 33.0pg (27.0-35.0) Mean Corpuscular Hemoglobin Concent 31.6% (32.0-37.0) 31.8% (32.0-37.0) Red Cell Distribution Width 16.7% (12.3-15.4) 16.4% (12.3-15.4) Platelet Count 251bil/L (150-400) 250bil/L (150-400) Neutrophils (%) (Auto) 66.3% (40-74) Lymphocytes (%) (Auto) 21.6% (14-46) Monocytes (%) (Auto) 10.0% (4-12) Eosinophils (%) (Auto) 1.5% (0-5) Basophils (%) (Auto) 0.2% (0-3) Prothrombin Time 14.7sec (8.1-12.5) 13.4sec (8.1-12.5) Prothromb Time International Ratio 1.37ratio 1.25ratio Test 05/16/16 07:04 Hemoglobin 9.1g/dL (12.0-15.6) Hematocrit 29.0% (35.0-46.0) Result Diagram: 05/16/16 0704 05/13/16 0542 Assessment & Plan Patient is an 86 year female with a history of hypertension, stroke, atrial fibrillation on Warfarin, colon cancer, bleeding gastric ulcers, hemorrhoids, and Alzheimer's who presents with hematochezia that began this morning Acute GI bleed, stable. - Given her history of colon cancer, gastric ulcers, and hemorrhoids, she may be having an upper or lower GI bleed, although an upper GI bleed is more likely. Her stool was reported to have been bright red or dark red at times. She has no history of liver disease and LFTs were normal, so no concern for variceal bleed. Upper endoscopy was negative other than a patent Schatzki ring. She does not appear to have any blood in her stool at this time and is unlikely to be compliant with bowel prep, and would poorly tolerate a colonoscopy. Her H& H has stabilized, so there is no urgent need for a colonoscopy at this time. Discussed the need for continuing anticoagulants in this patient, and risks and benefits of preventing stroke vs her falling and bleeding risks. Family appears to be inclined to stop Warfarin, but will be discussing amongst themselves. Recommend further discussion with primary team later today or tomorrow. - Protonix 40 mg daily - Continue to monitor, appears stable for now. - Advance diet as tolerated Consider left atrial appendage occlusion device (Watchman Device), which can be placed via catheter and reduces incidence of stroke in afib without requiring anticoagulation. Patient did have a guaiac positive brown reddish stool yesterday none after that. Hematocrit has been stable INR is currently subtherapeutic and we will go ahead and monitor through the day for further problems Macrocytic anemia, stable. - Hb 11.3 --> 9.4. MCV 106.3. No history of CKD or other vitamin deficiencies, but MCV is elevated, so consider checking B12/folate. She denies EtOH history. - Recommend further discussion with family about whether the patient needs to be on chronic anticoagulation, given her bleeding and fall risk. May require palliative care consult. - Monitor H&H daily transfuse as required - We will also check B12/folate. Weight loss - Likely secondary to her recent dental surgeries, diet change, and of her . Some suspicion for recurrence of colon cancer, however. - Recommend nutritional supplements History of Colon Cancer - S/P possible colectomy. Recurrence may be source of bleed. Discussed with family, who do not wish for a colonoscopy at this time. May revisit subject if she continues to bleed. GI Prophylaxis: Proton Pump Inhibitor VTE Mechanical Devices: Intermittant Pneumatic CD Resuscitation Status: CPR: Attempt Resuscitation Time spent 30 minutes Josefina Badillo MD May 16, 2016 08:33
--- NOTE | 2016-05-16 11:46 | PCM.PNMED ---
Subjective Date of Service May 16, 2016 Subjective Patient had a bloody bowel movement overnight, but has not had any others since. H&H has been stable. She has been tolerating a clear liquid diet without complaint of nausea. Denies vomiting, diarrhea, fevers, chills, bloody stool. Exam Vital Signs Vital Sign - Last Date Time Temp Pulse Resp B/P Pulse Ox O2 Delivery O2 Flow Rate FiO2 05/16/16 05:20 36.7 59 16 132/52 92 Room Air 05/14/16 15:10 1 Intake and Output 05/15/16 05/15/16 05/16/16 Cumulative From/Thru 15:00 23:00 07:00 05/12/16 12:44 - 05/15/16 19:00 Intake Total 230 ml 498 ml 5421 ml Output Total 794 ml 1443 ml Balance -564 ml 498 ml 3978 ml Intake Oral 230 ml 498 ml 1714 ml IV Total 3490 ml FFP 217 ml Output Urine Total 794 ml 1443 ml # Voids 2 3 16 # Bowel Movements 3 Exam General: Alert, Oriented to name only, Cooperative, No Acute Distress Head: Normocephalic, atraumatic. External ears normal. Eyes: PERRLA, EOMI. Anicteric sclerae. Mouth: Mouth Normal, Mucous Membranes Moist/[place] Chest & Lungs: Clear to auscultation bilaterally with no crackles, wheezes, or rhonchi. Cardiovascular: Irregularly irregular, Normal S1, Normal S2, Systolic murmur present Abdomen: Mild diffuse tenderness, Non-distended, No masses, Normoactive bowel tones, Soft Musculoskeletal: Normal Range of Motion Extremities: No cyanosis/clubbing/edema bilaterally Neurological: Grossly Neurologically Intact, Normal Speech, Confused. Lab and Diagnostics Result Diagram: 05/16/16 0704 05/13/16 0542 Assessment & Plan Patient is an 86 year female with a history of hypertension, stroke, atrial fibrillation on Warfarin, colon cancer, bleeding gastric ulcers, hemorrhoids, and Alzheimer's who presents with hematochezia that began this morning Acute GI bleed, stable. - Given her history of colon cancer, gastric ulcers, and hemorrhoids, she may be having an upper or lower GI bleed, although an upper GI bleed is more likely. Her stool was reported to have been bright red or dark red at times. She has no history of liver disease and LFTs were normal, so no concern for variceal bleed. Upper endoscopy was negative other than a patent Schatzki ring. She does not appear to have any blood in her stool at this time and is unlikely to be compliant with bowel prep, and would poorly tolerate a colonoscopy. She had a bloody bowel movement last night but her H&H has been stable. Will continue to monitor. - Protonix 40 mg daily - Continue to monitor, appears stable for now. - Advance diet as tolerated - Consider left atrial appendage occlusion device (Watchman Device), which can be placed via catheter and reduces incidence of stroke in afib without requiring anticoagulation. Macrocytic anemia, stable. - Hb 11.3 --> 9.4. MCV 106.3. No history of CKD or other vitamin deficiencies, but MCV is elevated, so consider checking B12/folate. She denies EtOH history. - Recommend further discussion with family about whether the patient needs to be on chronic anticoagulation, given her bleeding and fall risk. May require palliative care consult. - Monitor H&H daily transfuse as required - Consider checking B12/folate. Weight loss - Likely secondary to her recent dental surgeries, diet change, and of her . Some suspicion for recurrence of colon cancer, however. - Recommend nutritional supplements History of Colon Cancer - S/P possible colectomy. Recurrence may be source of bleed. Discussed with family, who do not wish for a colonoscopy at this time. May revisit subject if she continues to bleed. GI Prophylaxis: Proton Pump Inhibitor VTE Mechanical Devices: Intermittant Pneumatic CD Resuscitation Status: CPR: Attempt Resuscitation Attending Statement pt seen and examined agree with resident physician note follow H/H as per prior family discussion , no colonoscopy if bleeding resolves off warfarin if however decision is that she goes back on warfarin per primary team , then would recommend colonoscopy Dr Christie is covering the service till Friday, I will be back on Friday. Chicho Crandall May 16, 2016 11:46 Robert Ireland MD May 16, 2016 13:31
[2016-05-16 13:42] VITALS: BP 124/60; PULSE 66; RESP 16; O2SAT 93
--- NOTE | 2016-05-16 19:32 | NUR ---
Activity/Swallow Pt up to chair with 2 person max assist for dinner, tolerated well. Pt is unsteady but uses own strength to stand, pivot transfer performed. 1:1 feed performed in chair. Pt found to be pocketing noodles, continued only with full liquids. Pills crushed in applesauce.
[2016-05-16 20:38] VITALS: BP 152/70; PULSE 63; RESP 16; O2SAT 92
--- NOTE | 2016-05-17 03:31 | NUR ---
Activity/Pain Patient in bed all of shift thus far. 2 person max assist with brief changes and repositioning. Patient cooperative with care. No evidence of pain, FELDT score=0.
[2016-05-17] MEDS: 0.9% Sodium Chloride 1,000 ML IV SCH (04:57)
[2016-05-17 06:37] LABS: BASOPHILS % (AUTO) 0.5 % (0-3); EOSINOPHILS % (AUTO) 3.3 % (0-5); Mean Corpuscular Hemoglobin 33.6 pg (27.0-35.0); Mean Corpuscular Volume 103.7 fL (81-100); NEUTROPHILS % (AUTO) 58.1 % (40-74); Platelet Count 290 bil/L (150-400)
[2016-05-17 06:45] LABS: INR 1.14 ratio
[2016-05-17 09:53] VITALS: BP 88/54; PULSE 69; RESP 15; O2SAT 98
--- NOTE | 2016-05-17 11:33 | NUR ---
NUTRITION FOLLOW-UP: ASSESS: 86 YO female with rectal bleed. Pt is s/p EGD which came back negative. Diet has been advanced to soft with fair PO intake of 25-50%. No reported N/V. Pt has some reported wt loss likely secondary to her recent dental surgeries, diet change, and of her . There is some concern for recurrence of colon cancer. PMHx: HTN, Stroke, afib on coumadin, Alzheimer's dementia, hemorrhoids, bleeding gastric ulcers, colon cancer, TIA. LABS: Reviewed. K 3.2, CO2 30, [employer] .51, Glu 101, Alb 2.8 MEDS: Reviewed. GI: BM x 1 (05/17) SKIN: Tino 15, No PU per WC CURRENT WT: 64.2kg, BMI 20.6kg/m2, admit wt 63.1kg IBW: 67kg DIET: Soft, PO 25-50% EST. NEEDS: 8361-4372 kcals (25-30 kcals/kg BW), 75-95 g protein (1.2-1.5 g/kg BW) NUTRITION DIAGNOSIS: 1.) Inadequate oral intake related to altered GI function as evidenced by GI bleed and NPO status x 2 days.--IMPROVING NUTRITION INTERVENTION: 1.) Will add Magic Cups on L and D trays to help supplement PO intake MONITOR / EVAL: PO, wt, GI, labs, nutritional status. Follow per moderate nutritional risk guidelines.
[2016-05-17] MEDS ORDERED: CEPH500C PO (13:58)
--- NOTE | 2016-05-17 13:58 | PCM.DIMED ---
Discharge Instructions Date of Service May 17, 2016 Dates of Hospitalization May 12, 2016 at 16:13 Discharge Diagnosis Discharge Diagnosis 1. Lower GI bleed. Improved. 2. Acute blood loss anemia, stable. 3. Dementia, stable. 4. Remote history of gastric ulcer, none on recent endoscopy. 5. Remote history of colon cancer status post resection. Declined colonoscopy and recent admission. 6. Chronic atrial fibrillation, had been on Coumadin 7. Coumadin coagulopathy and recent admission. Diet No restrictions Activity Limited until seen by PCP Call your provider Shortness of breath, Bleeding Patient Instructions PCP within 2 weeks. CBC within 5 days with copy to PCP. Jaya Capellan MD May 17, 2016 13:57
--- NOTE | 2016-05-17 14:58 | NUR ---
Social Work: Continued Discharge Planning Data & Assessment: SW spoke with patient's daughter at bedside and notified her that PT was recommending Home Health and she requested that the patient be referred to the Homehealth agency that the facility recommends. Brim Presser spoke with the facility and they recommended [facility]. SW called [facility] and notified [facility] of the referral and gave [facility] access to the patient chart. Patient F2F was faxed. SW spoke to [facility] and she confirmed receipt of the patient's clinical and reported that the patient could return to [facility]. Patient will return to [facility] with [facility] via POV. SW will continue to follow. Plan: Return to [facility] with [facility].Patient will transport via POV. SW will follow. Nickie Edmond LMSW, [place]
--- NOTE | 2016-05-17 15:23 | PCM.DC.MED ---
Discharge Summary Date of Service May 17, 2016 Dates of Hospitalization Date of Hospital Admission May 12, 2016 at 16:13 Date of Discharge: May 17, 2016 Providers: Admitting Physician: Bienvenido Flores MD Primary Care Physician: Tiff Bhatia MD Attending Physician: Bienvenido Flores MD Diagnosis at Time of Discharge Diagnosis at Time of Discharge 1. Lower GI bleed. Improved. 2. Acute blood loss anemia, stable. 3. Dementia, stable. 4. Remote history of gastric ulcer, none on recent endoscopy. 5. Remote history of colon cancer status post resection. Declined colonoscopy and recent admission. 6. Chronic atrial fibrillation, had been on Coumadin 7. Coumadin coagulopathy and recent admission. Consultations Gastroenterology Procedures Invasive Procedures Upper endoscopy May 14, revealing only a Schatzki ring and no obvious bleeding source. Brief History Patient is an 86 year female with a history of hypertension, stroke, atrial fibrillation on Warfarin, colon cancer, bleeding gastric ulcers, hemorrhoids, and Alzheimer's who presents with hematochezia that began this morning. Patient is unable to provide a history due to dementia. Her family reports that she had raymond blood red stool this morning and she has been increasingly weak for the past few days. She was noted to have a bowel movement with red blood and dark blood this morning after admission. She reports lightheadedness this morning but otherwise has no other complaints. She denies chest pain, shortness of breath, head ache, abdominal pain, diarrhea, vomiting. On admission, vitals were stable. Labs showed Hb 11.3, now down to 9.4. Hct 35.7 --> 29.6. LFTs normal. INR was 3.21 on admission, now 3.53. Her daughter reports her INR has been difficult to control, as she has been consistently losing weight. Daughter reports the pt has lost about 30 lbs in the last 7 months, but attributes it to mood and appetite. The pt's about 6-7 months ago and the patient has had dental issues and was in the process of oral surgery and denture placement over the summer. She has since been on a mechanical soft diet in her care facility ([facility]) and has been eating poorly. The patient has a history of colon cancer, s/p surgery (likely colectomy) and yearly colonoscopies. The daughter states she has not had a colonoscopy in about 10 years, however, as they were eventually discontinued due to the patient's age. No family history of Crohn's, UC, Celiac disease. She denies any NSAID use, with regular Tylenol use (Weiser). Hospital Course Patient is an 86 year female with a history of hypertension, stroke, atrial fibrillation on Warfarin, colon cancer, bleeding gastric ulcers, hemorrhoids, and Alzheimer's who presents with hematochezia that began this morning Acute GI bleed, stable. - Given her history of colon cancer, gastric ulcers, and hemorrhoids, she may be having an upper or lower GI bleed, although an upper GI bleed is more likely. Her stool was reported to have been bright red or dark red at times. She has no history of liver disease and LFTs were normal, so no concern for variceal bleed. Upper endoscopy was negative other than a patent Schatzki ring. She does not appear to have any blood in her stool at this time and is unlikely to be compliant with bowel prep, and would poorly tolerate a colonoscopy. She had a bloody bowel movement last night but her H&H has been stable. Will continue to monitor. - Protonix 40 mg daily - Continue to monitor, appears stable for now. - Advance diet as tolerated - Consider left atrial appendage occlusion device (Watchman Device), which can be placed via catheter and reduces incidence of stroke in afib without requiring anticoagulation. Macrocytic anemia, stable. - Hb 11.3 --> 9.4. MCV 106.3. No history of CKD or other vitamin deficiencies, but MCV is elevated, so consider checking B12/folate. She denies EtOH history. - Recommend further discussion with family about whether the patient needs to be on chronic anticoagulation, given her bleeding and fall risk. May require palliative care consult. - Monitor H&H daily transfuse as required - Consider checking B12/folate. Weight loss - Likely secondary to her recent dental surgeries, diet change, and of her . Some suspicion for recurrence of colon cancer, however. - Recommend nutritional supplements History of Colon Cancer - S/P possible colectomy. Recurrence may be source of bleed. Discussed with family, who do not wish for a colonoscopy at this time. May revisit subject if she continues to bleed. Hospital course. This is a patient with dementia who has a history of atrial fibrillation and presented with bright red rectal bleeding. She was found to be coagulopathic and was reversed with vitamin K. The patient had a relative anemia but did not require blood products. She was placed on Protonix drip and underwent endoscopy which revealed only a Schatzki ring. Discussion ensued with family members note is felt prudent to not pursue colonoscopy per their wishes but to treat the patient symptomatic with blood products as needed. After reversal of the coagulopathy and bleeding clinically improved. The patient's hematocrit remained stable. Incidental Escherichia coli urinary tract infection was discovered and treatment was started. On the day of discharge advanced care was discussed with the patient's daughter. The patient is DNR/DNI per her pulse. Probably they would forego another endoscopy and colonoscopy in the future or any other invasive procedure. They were however billing to accept blood products and other simple measures such as antibiotics. They understand that the patient's general prognosis is somewhat guarded and is feasible that she may find the end of her natural life via a recurrent GI bleed as she has had at least 2 up to this point. Recurrent stroke is also a possibility. She had been placed on Coumadin after her previous stroke but now it seems that the risks outweigh the benefits and we will hold Coumadin likely indefinitely. Consideration for aspirin as a lesser scale mitigate her against thromboembolic stroke risk with a start date perhaps in 2-4 weeks was also discussed. Exam Vital Signs (Last) Date Time Temp Pulse Resp B/P Pulse Ox O2 Delivery O2 Flow Rate FiO2 05/17/16 09:53 36.2 69 15 88/54 98 Room Air 05/14/16 15:10 1 Exam Alert, comfortable Lungs are clear with normal effort. Heart is irregular without murmur Abdomen soft nontender Extremities free of edema. Skin free of rash or lesions Test 05/12/16 13:50 05/12/16 14:06 05/17/16 05:20 Urine Color Straw (YELLOW) Urine Appearance Clear (CLEAR,HAZY) Urine pH 7.5 (5.0-8.0) Urine Specific [place] 1.015 (1.003-1.035) Urine Protein Negativemg/dL (NEG,TRACE) Urine Glucose (UA) Negativemg/dL (NEGATIVE) Urine Ketones Negativemg/dL (NEGATIVE) Urine Occult Blood Trace (NEGATIVE) Urine Nitrite Negative (NEGATIVE) Urine Bilirubin Negative (NEGATIVE) Urine Urobilinogen Normalmg/dL (NORMAL) Urine Leukocyte Esterase Moderate (NEGATIVE) Urine RBC 0-2/hpf (0-2) Urine WBC 11-50/hpf (0-5) Urine Epithelial Cells Few/hpf (NONE-MOD) Urine Crystals None seen (NONE SEEN) Urine Bacteria Many/hpf (NONE-FEW) Urine Hyaline Casts None/lpf (NONE) Urine Granular Casts None seen (NONE SEEN) Urine Waxy Casts None seen (NONE SEEN) Urine Red Blood Cell Casts None seen (NONE SEEN) Urine White Blood Cell Casts None seen (NONE SEEN) Urine Mucus None seen (None Seen) Urine Trichomonas None seen (NONE SEEN) Urine Yeast None (NONE SEEN) Urinalysis Comment None Urine Culture Reflexed Indicated Hold Elder Top Tube Received (Received) White Blood Count 6.6th/mm3 (3.8-10.1) Red Blood Count 2.71mil/mm3 (3.90-5.20) Hemoglobin 9.1g/dL (12.0-15.6) Hematocrit 28.1% (35.0-46.0) Mean Corpuscular Volume 103.7fL (81-100) Mean Corpuscular Hemoglobin 33.6pg (27.0-35.0) Mean Corpuscular Hemoglobin Concent 32.4% (32.0-37.0) Red Cell Distribution Width 16.5% (12.3-15.4) Platelet Count 290bil/L (150-400) Neutrophils (%) (Auto) 58.1% (40-74) Lymphocytes (%) (Auto) 24.6% (14-46) Monocytes (%) (Auto) 13.0% (4-12) Eosinophils (%) (Auto) 3.3% (0-5) Basophils (%) (Auto) 0.5% (0-3) Prothrombin Time 12.2sec (8.1-12.5) Prothromb Time International Ratio 1.14ratio Sodium Level 144mEq/L (134-144) Potassium Level 3.2mEq/L (3.5-5.2) Chloride Level 105mEq/L (97-108) Carbon Dioxide Level 30mmol/L (18-29) Blood Urea Nitrogen 8mg/dL (8-27) Creatinine 0.51mg/dL (0.57-1.00) Estimat Glomerular Filtration Rate 163mL/min (>59) Glucose Level 101mg/dL (60-99) Calcium Level 8.5mg/dL (8.5-10.1) Total Bilirubin 0.6mg/dL (0.0-1.2) Aspartate Amino Transf (AST/SGOT) 13U/L (0-50) Alanine Aminotransferase (ALT/SGPT) 5U/L (0-32) Alkaline Phosphatase 77U/L (25-165) Total Protein 5.4g/dL (6.4-8.4) Albumin 2.8g/dL (3.4-5.0) Microbiology Results Urine culture reveals Escherichia coli which is sensitive to cephalosporin. Discharge Medications Discharge Medications Cephalexin (Cephalexin) 500 Mg Capsule 500 MG PO QID Prescribed by: JAYA FRY MD Donepezil (Donepezil) 10 Mg Tablet 10 MG PO HS (Reported) Furosemide (Lasix) 40 Mg Tablet 40 MG PO DAILY (Reported) Metoprolol Tartrate (Metoprolol Tartrate) 25 Mg Tablet 25 MG PO BID (Reported) Omeprazole (Omeprazole) 20 Mg Capsule.dr 20 MG PO DAILY (Reported) Sertraline HCl (Sertraline) 100 Mg Tablet 100 MG PO DAILY (Reported) Simvastatin (Simvastatin) 20 Mg Tablet 20 MG PO HS (Reported) As needed Hydrocodone-Acetaminophen 5-325 mg (Hydrocodone-Acetaminophen 5-325 mg) 1 Each Tablet 1 TABLET PO Q4H PRN PRN For Pain (Reported) Followup Plan Disposition: Home, with daughter by private automobile Discharge Diet: No restrictions Discharge Activity: Limited until seen by PCP Patient Instructions PCP within 2 weeks. CBC within 5 days with copy to PCP. Time spent 45 minutes Jaya Fry MD May 17, 2016 15:23
--- NOTE | 2016-05-17 15:30 | NUR ---
discharge: Pt dc'd at 1525. All dc instructions given. Script for Cephalexin given and care notes given. No iv. Pt dressed and moved in wheelchair to daughters car to transport back to [facility]. Report given to [facility] at [facility].
== END 2016-05-17 15:28 | disposition home health service (06) | DRG 378 ==
LOC: EDBD 12:35 → SED 12:35 → OSC 16:13
PROVIDERS: ADMIT Internal Medicine; ATTEND Internal Medicine
PROC: 30233R1 Transfusion of Nonautologous Platelets into Peripheral Vein, Percutaneous Approach (ICD-10-PCS; 2016-05-13)
PROC: 0DJ08ZZ Inspection of Upper Intestinal Tract, Via Natural or Artificial Opening Endoscopic (ICD-10-PCS; principal; 2016-05-14 13:00)
DX: K92.2 Gastrointestinal hemorrhage, unspecified (principal); N39.0 Urinary tract infection, site not specified; D62 Acute posthemorrhagic anemia; Z85.038 Personal history of other malignant neoplasm of large intestine; I10 Essential (primary) hypertension; I48.2 Chronic atrial fibrillation; G30.9 Alzheimer's disease, unspecified; F02.80 Dementia in other diseases classified elsewhere, unspecified severity, without behavioral disturbance, psychotic disturbance, mood disturbance, and anxiety; E78.5 Hyperlipidemia, unspecified; Z79.01 Long term (current) use of anticoagulants; D50.9 Iron deficiency anemia, unspecified; R63.4 Abnormal weight loss; Z68.21 Body mass index [BMI] 21.0-21.9, adult; Z86.73 Personal history of transient ischemic attack (TIA), and cerebral infarction without residual deficits; Z87.11 Personal history of peptic ulcer disease; Z66 Do not resuscitate; B96.29 Other Escherichia coli [E. coli] as the cause of diseases classified elsewhere